=== PATIENT | male | born 1980 | race Caucasian/White ===

== ENCOUNTER 2021-12-02 22:52 | Emergency (ER) | payer SELFPAY ==
[~2021-12-02] VITALS: Ht 172.7 cm; Wt 111.5 kg
[2021-12-02] MEDS ORDERED: KETOROLAC 60MG/2ML VIAL IM ONE (23:30)
[2021-12-03 00:21] LABS: BASOPHILS % 0.4 % (0.0-2.0); EOSINOPHILS % 1.1 % (0.0-5.0); HEMATOCRIT. 38.4 % (42.0-52.0); LYMPHOCYTES % 13.5 % (20.0-50.0); MEAN CORPUSCULAR VOLUME 85.7 fL (80.0-94.0); MEAN PLATELET VOLUME 8.5 fl (7.4-10.4); MONOCYTES % 8.8 % (2.0-8.0); NEUTROPHILS % 76.2 % (40.0-76.0); PLATELET 267 x1000/uL (130-400); RED BLOOD CELL COUNT 4.48 mill/uL (4.7-6.1); RED CELL DISTRIBUTION WIDTH 14.5 % (11.6-14.6)
[2021-12-03 00:33] LABS: CHLORIDE 104 mEq/L (98-107)
[2021-12-03 00:43] LABS: CLARITY URINE CLOUDY (CLEAR); COLOR URINE YELLOW (YELLOW); KETONES URINE 1+ (NEGATIVE); LEUKOCYTE ESTERASE URINE NEGATIVE (NEGATIVE); NITRITE URINE NEGATIVE (NEGATIVE); OCCULT BLOOD URINE NEGATIVE (NEGATIVE); PH URINE 8.5 (4.5-8.0); PROTEIN URINE TRACE (NEGATIVE); SPECIFIC GRAVITY URINE 1.025 (1.005-1.030)
[2021-12-03] MEDS ORDERED: TAMS-11 MT (02:18)
[2021-12-03] MEDS ORDERED: CIPR-263 MT (02:18)
[2021-12-03] MEDS ORDERED: IBUP-2029 MT (02:18)
[2021-12-03] MEDS ORDERED: METR375C2 MT (02:18)
[2021-12-03 02:36] VITALS: BP 126/59
== END 2021-12-03 02:36 | disposition home or self-care (01) ==
LOC: ER 22:52
DX: N20.0 Calculus of kidney (principal); K52.9 Noninfective gastroenteritis and colitis, unspecified; Z79.899 Other long term (current) drug therapy
CPT/HCPCS: 36415; 74176; 80053; 81003; 83690; 85025; 96372; 99284; J1885